=== PATIENT | male | born 1995 | race Caucasian/White ===

== ENCOUNTER → 2021-09-11 | Outpatient (CLI) | payer BC | END | disposition home or self-care (01) | LOC: LABWHC1 12:18 | PROVIDERS: ATTEND Family Medicine | DX: U07.1 COVID-19 (principal) | CPT/HCPCS: U0003; C9803; U0005 ==

== ENCOUNTER 2024-12-30 01:51 | Emergency (ER) | payer BC ==
--- NOTE | 2024-12-30 02:12 | ED ---
General Adult HPI - General Chief complaint: Nausea/Vomiting/Diarrhea Stated complaint: NVD Time Seen by Provider: 12/30/24 02:00 Source: patient, RN notes reviewed, old records reviewed Mode of arrival: ambulatory Limitations: no limitations - History of Present Illness Initial comments: Patient is a 29-year-old male who presents emergency department complaining of fevers, chills, rigors with diarrhea, nausea and vomiting. Emesis is nonbilious nonbloody. Diarrhea is nonbloody. Symptoms all started this evening. Has a young child with intermittent emesis as well but attributes it to teething. Took some Aleve prior to arrival. States his abdominal pain that he is having with it is somewhat crampy and mostly located in the right lower quadrant. He is concerned for possible appendicitis. Denies any other acute complaints at this time. Presents for further evaluation. Denies any cough or congestion. Denies any chest pain or shortness of breath. Denies any urinary complaints. - Related Data Home Medications Medication Instructions Recorded Confirmed Hydrocodone/Acetaminophen [[place] 1 each PO Q4HR PRN 03/23/14 03/23/14 5-325] Previous Rx's Medication Instructions Recorded Ibuprofen [Motrin] 800 mg PO Q6HR PRN #20 tab 03/23/14 Orphenadrine [Norflex] 100 mg PO Q12H #20 tablet.er 03/23/14 Allergies Allergy/AdvReac Type Severity Reaction Status Date / Time Penicillins Allergy Rash/Hives Verified 12/30/24 01:54 Review of Systems ROS Statement: Those systems with pertinent positive or pertinent negative responses have been documented in the HPI. Review of Systems: CONST: Versus fever EYES: Denies blurry vision ENT: Denies nasal congestion C/V: Denies Chest pain RESP: Denies shortness of breath GI: Endorses right lower quadrant abdominal pain with nausea, vomiting, diarrhea : Denies dysuria SKIN: Denies rash. MSK: Denies joint pain. NEURO: Denies headache ROS Other: All systems not noted in ROS Statement are negative. 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 Febrile HEAD: Normal with no signs of head trauma. EYES: PERRLA, EOMI, conjunctiva normal, no discharge. ENT: Hearing grossly intact, normal oropharynx. RESPIRATORY: Clear breath sounds bilaterally. No wheezes, rales, or rhonchi. C/V: Regular rate and rhythm. S1 and S2 auscultated, no edema, peripheral pulses 2+ and intact throughout ABD: Abdomen soft, nondistended. Tender to palpation minimally in the right lower quadrant. No guarding or rebound tenderness. No peritoneal signs. EXT: Normal range of motion, no obvious deformity SKIN: No rashes or lesions observed on exposed skin. NEURO: Alert and oriented x 4. Limitations: no limitations Course Vital Signs 12/30/24 12/30/24 12/30/24 01:52 02:25 04:02 Temperature 98.5 F 102.0 F H 99.1 F Pulse Rate 117 H 74 Respiratory 20 16 Rate Blood Pressure 118/78 102/58 O2 Sat by Pulse 99 96 Oximetry Medical Decision Making - Medical Decision Making Was pt. sent in by a medical professional or institution (, PA, RETAIL PLANNER, urgent care, hospital, or long-term...) When possible be specific @ -No Did you speak to anyone other than the patient for history (EMS, parent, family, police, friend...)? What history was obtained from this source @ -No Did you review nursing and triage notes (agree or disagree)? Why? @ -I reviewed and agree with nursing and triage notes Were old charts reviewed (outside hosp., previous admission, EMS record, old EKG, old radiological studies, urgent care reports/EKG's, long-term records)? Report findings @ -No old charts were reviewed Differential Diagnosis (chest pain, altered mental status, abdominal pain women, abdominal pain men, vaginal bleeding, weakness, fever, dyspnea, syncope, headache, dizziness, GI bleed, back pain, seizure, CVA, palpatations, mental health, musculoskeletal)? @ -Differential Abdominal Pain Men: Appendicitis, cholecystitis, diverticulosis, ischemic bowel, pancreatitis, hepatitis, UTI, gastroenteritis, AAA, incarcerated hernia, bowel obstruction, constipation, inflammatory bowel, hepatitis, peptic ulcer disease, splenic infarction, perforated viscus, testicular torsion, this is not meant to be an all-inclusive list EKG interpreted by me (3pts min.). @ -None done X-rays interpreted by me (1pt min.). @ -None done CT interpreted by me (1pt min.). @ -CT imaging shows no obvious acute significant intra-abdominal process. Concern for mild enterocolitis. U/S interpreted by me (1pt. min.). @ -None done What testing was considered but not performed or refused? (CT, X-rays, U/S, labs)? Why? @ -None What meds were considered but not given or refused? Why? @ -None Did you discuss the management of the patient with other professionals (pastor evans i.e. , PA, RETAIL PLANNER, lab, RT, psych nurse, social insurance administrator, photography coordinator, teacher, sales promotion officer, case consultant)? Give summary @ -No Was smoking cessation discussed for >3mins.? @ -No Was critical care preformed (if so, how long)? @ -No Were there social determinants of health that impacted care today? How? (Homelessness, low income, unemployed, alcoholism, drug addiction, transportation, low edu. Level, literacy, decrease access to med. care, detention, rehab)? @ -No Was there de-escalation of care discussed even if they declined (Discuss DNR or withdrawal of care, Hospice)? DNR status @ -No What co-morbidities impacted this encounter? (DM, HTN, Smoking, COPD, CAD, Cancer, CVA, ARF, Chemo, Hep., AIDS, mental health diagnosis, sleep apnea, morbid obesity)? @ -None Was patient admitted / discharged? Hospital course, mention meds given and route, prescriptions, significant lab abnormalities, going to OR and other pertinent info. @ -29-year-old male presents with abdominal pain, primarily in the right lower quadrant with fevers, nausea, vomiting, diarrhea. We will obtain abdominal labs, viral swabs, as well as CT abdomen pelvis. He was in agreement this plan. Patient symptomatically treat with IV fluids, Zofran, Toradol, Protonix as well as oral Tylenol for his fever. Vitals within acceptable limits other than the fever and mild tachycardia likely secondary to the fever. He was in agreement this plan. Patient's laboratory studies returned remarkable for normal lactic acid. Normal white blood cell count. CT imaging shows mild enterocolitis but no other obvious acute intra-abdominal process. Cepheid is still pending at this time. On reevaluation, patient is feeling improved. He does not want a wait for the results of the left viral swabs. Vitals are improved including improved fever. He will be discharged home at this time. He is discharged home with starter michelle Bro. I will contact him if his viral swabs are positive. He was in agreement with this plan. Strict return precautions discussed. I instructed the patient to follow up with their PCP in the next 1-3 days. I explained that the patient should return to the emergency department if they ex perience any worsening symptoms. Strict return precautions were discussed with the patient. The patient expressed understanding of these instructions. I answered all questions that the patient had. The patient was discharged home in good condition with their prescriptions and follow up information. Undiagnosed new problem with uncertain prognosis? @ -No Drug Therapy requiring intensive monitoring for toxicity (Heparin, Nitro, Insulin, Cardizem)? @ -No Were any procedures done? @ -No Diagnosis/symptom? @ -Enterocolitis, nausea vomiting and diarrhea Acute, or Chronic, or Acute on Chronic? @ -Acute Uncomplicated (without systemic symptoms) or Complicated (systemic symptoms)? @ -complicated Side effects of treatment? @ -None Exacerbation, Progression, or Severe Exacerbation] @ -No Poses a threat to life or bodily function? @ -Unlikely at this time - Lab Data Result diagrams: 12/30/24 02:22 12/30/24 02:22 Lab Results 12/30/24 12/30/24 12/30/24 Range/Units 02:22 02:22 02:22 WBC 7.76 (4.50-10.00) 10*3/uL RBC 5.49 (4.40-5.60) 10*6/uL Hgb 16.2 (13.0-17.0) g/dL Hct 47.7 (39.6-50.0) % MCV 86.9 (80.0-97.0) fL MCH 29.5 (27.0-32.0) pg MCHC 34.0 (32.0-37.0) g/dL Plt Count 169 (140-440) 10*3/uL MPV 11.1 (9.5-12.2) fL Immature Gran % (Auto) 0.3 % Neutrophils % 86.5 % Lymphocytes % 6.3 % Monocytes % 6.1 % Eosinophils % 0.4 % Basophils % 0.4 % Immature Gran # 0.02 (0.00-0.04) 10*3/uL Neutrophils # 6.72 (1.80-7.70) 10*3/uL Lymphocytes # 0.49 L (0.90-5.00) 10*3/uL Monocytes # 0.47 (0.20-1.00) 10*3/uL Eosinophils # 0.03 L (0.04-0.35) 10*3/uL Basophils # 0.03 (0.00-0.10) 10*3/uL Sodium 139 (137-145) mmol/L Potassium 3.9 (3.5-5.1) mmol/L Chloride 101 (98-107) mmol/L Carbon Dioxide 25 (22-30) mmol/L Anion Gap 13 mmol/L BUN 18 (9-20) mg/dL Creatinine 1.08 (0.66-1.25) mg/dL Est GFR (CKD-EPI)AfAm >90 (>60 ml/min/1.73 sqM) Est GFR (CKD-EPI)NonAf >90 (>60 ml/min/1.73 sqM) Glucose 123 H (74-99) mg/dL Plasma Lactic Acid [place] 1.3 (0.7-2.0) mmol/L Calcium 9.9 (8.4-10.2) mg/dL Total Bilirubin 1.2 (0.2-1.3) mg/dL AST 24 (17-59) U/L ALT 25 (4-49) U/L Alkaline Phosphatase 56 (38-126) U/L Total Protein 7.2 (6.3-8.2) g/dL Albumin 4.7 (3.5-5.0) g/dL Amylase 43 (30-110) U/L Lipase 87 (23-300) U/L Disposition Clinical Impression: Enterocolitis, Nausea vomiting and diarrhea Disposition: HOME SELF-CARE Condition: Good Instructions (If sedation given, give patient instructions): Dehydration (DC), Gastroenteritis (ED), Acute Nausea and Vomiting (ED), Acute Diarrhea (ED) Additional Instructions: You have a viral syndrome causing enterocolitis. Continue with symptomatic tr eatment with IV fluids and ODT Zofran as needed for nausea. Remain hydrated at home. Return if any worsening symptoms. Follow-up with your PCP in the next 1 to 3 days. Is patient prescribed a controlled substance at d/c from ED?: No Referrals: Orteag Dejesus MD [Primary Care Provider] - 1-2 days Time of Disposition: 03:55
[2024-12-30] MEDS: ACETAMINOPHEN TAB 500 MG TAB PO STA (02:25)
[2024-12-30] MEDS: PANTOPRAZOLE 40 MG/10 ML VIAL IVP STA (02:35)
[2024-12-30] MEDS: ONDANSETRON 4 MG/2 ML VIAL IVP STA (02:35)
[2024-12-30] MEDS: KETOROLAC 15 MG/ML 1 ML VIAL IVP STA (02:36)
[2024-12-30] MEDS: SODIUM CHLORIDE 0.9% 1,000 ML IV ONE (02:36)
[2024-12-30 02:39] LABS: Basophils # (A) 0.03 10*3/uL (0.00-0.10); Basophils % (A) 0.4 %; Eosinophils # (A) 0.03 10*3/uL (0.04-0.35); Eosinophils % (A) 0.4 %; HCT 47.7 % (39.6-50.0); HGB 16.2 g/dL (13.0-17.0); Lymphocytes # (A) 0.49 10*3/uL (0.90-5.00); Lymphocytes % (A) 6.3 %; MCH 29.5 pg (27.0-32.0); MCV 86.9 fL (80.0-97.0); Mean Platelet Volume 11.1 fL (9.5-12.2); Monocytes # (A) 0.47 10*3/uL (0.20-1.00); Monocytes % (A) 6.1 %; Neutrophils # (A) 6.72 10*3/uL (1.80-7.70); Neutrophils % (A) 86.5 %; Platelet Count 169 10*3/uL (140-440); RBC 5.49 10*6/uL (4.40-5.60); RDW 11.5 % (11.5-14.5); WBC 7.76 10*3/uL (4.50-10.00)
[2024-12-30 03:05] LABS: ALT 25 U/L (4-49); AST 24 U/L (17-59); African American GFR (CKD) >90 (>60 ml/min/1.73 sqM); Albumin 4.7 g/dL (3.5-5.0); Alkaline Phosphatase 56 U/L (38-126); Amylase 43 U/L (30-110); Anion Gap 13 mmol/L; Blood Urea Nitrogen 18 mg/dL (9-20); Calcium 9.9 mg/dL (8.4-10.2); Carbon Dioxide 25 mmol/L (22-30); Chloride 101 mmol/L (98-107); Glucose 123 mg/dL (74-99); Lipase 87 U/L (23-300); Non-African American GFR(CKD) >90 (>60 ml/min/1.73 sqM); Potassium 3.9 mmol/L (3.5-5.1); Sodium 139 mmol/L (137-145); Total Bilirubin 1.2 mg/dL (0.2-1.3); Total Protein 7.2 g/dL (6.3-8.2)
--- NOTE | 2024-12-30 03:38 | CT ---
EXAM: CT Abdomen and Pelvis With Intravenous Contrast CLINICAL HISTORY: ITS.REASON CT Reason: abdominal pain. primarily RLQ. TECHNIQUE: Axial computed tomography images of the abdomen and pelvis with intravenous contrast. CTDI is 15.7 mGy and DLP is 798.5 mGy-cm. This CT exam was performed using one or more of the following dose reduction techniques: automated exposure control, adjustment of the mA and/or kV according to patient size, and/or use of iterative reconstruction technique. COMPARISON: No previous studies. FINDINGS: Lung bases: Unremarkable. No mass. No consolidation. Pleural space: Unremarkable. No pneumothorax. No pleural effusions. Heart: Heart is normal in size. ABDOMEN: Liver: Fatty liver. The liver and the spleen enhance uniformly. Gallbladder and bile ducts: See below. Pancreas: See below. Spleen: See above. Adrenals: The adrenal glands, the head, body, tail of the pancreas and the gallbladder are unremarkable. Kidneys and ureters: On delayed imaging, the visualized renal collecting systems are unremarkable. No renal calculus or hydronephrosis. Stomach and bowel: Mild Wall thickening of loops of small and large bowel. Consider mild diffuse enterocolitis. Moderate quantity of ingested material in the stomach. PELVIS: Appendix: The appendix is seen on coronal image 45 and is unremarkable. Bladder: Unremarkable. No mass. Reproductive: Unremarkable as visualized. ABDOMEN and PELVIS: Intraperitoneal space: Unremarkable. No free air. No significant fluid collection. Bones/joints: No acute fracture. No dislocation. Soft tissues: Unremarkable. Vasculature: Portal vein is patent. Flow is noted within the celiac, SMA, the renal arteries, and SARABJIT. No abdominal aortic aneurysm. Lymph nodes: Unremarkable. No retroperitoneal lymphadenopathy. Other findings: No inflammatory changes of the right lower quadrant. IMPRESSION: 1. The appendix is unremarkable. 2. Consider mild enterocolitis. 3. No gallstones. 4. No renal calculus or hydronephrosis.
[2024-12-30] MEDS: ONDANSETRON 4 MG ODT STARTER PACK 2 TAB BTL PO STA (03:58)
[2024-12-30 04:03] VITALS: BP 102/58; PULSE 74; RESP 16; TEMP 99.1
[2024-12-30 04:16] LABS: Prothrombin Time 11.4 sec (10.0-12.5)
[2024-12-30 04:26] LABS: Influenza A Not Detected (Not Detectd); Influenza B Not Detected (Not Detectd); RSV Not Detected (Not Detectd)
[2024-12-30 07:37] LABS: Partial Thromboplastin Time 21.2 sec (22.0-30.0)
== END 2024-12-30 04:02 | disposition home or self-care (01) ==
LOC: EC 01:51
DX: K52.9 Noninfective gastroenteritis and colitis, unspecified (principal); Z88.0 Allergy status to penicillin
CPT/HCPCS: 36415; 80053; 82150; 83605; 83690; 85025; 85610; 85730; 87636; 74177; 99284; 96374; 96375 ×2; 96361; J2405; J1885; S0119; Q9967; J2470